=== PATIENT | female | born 1995 | race Caucasian/White ===

== ENCOUNTER 2021-06-07 09:57 | Emergency (ER) | payer MEDICAID, SELFPAY ==
[2021-06-07 09:58] VITALS: BP 110/80; PULSE 81; RESP 16; TEMP 36.4; O2SAT 100; BMI 39.2
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
== END 2021-06-07 11:30 | disposition home or self-care (01) ==
LOC: ED 11:27
PROVIDERS: Emergency Provider Emergency Medicine
DX: S16.1XXA Strain of muscle, fascia and tendon at neck level, initial encounter (principal); S39.012A Strain of muscle, fascia and tendon of lower back, initial encounter; V89.0XXA Person injured in unspecified motor-vehicle accident, nontraffic, initial encounter
CPT/HCPCS: 72040; 72100; 99282